=== PATIENT | male | born 1995 | race Caucasian/White ===

== ENCOUNTER 2020-07-09 17:38 | Emergency (ER) | payer OTHER ==
[~2020-07-09] VITALS: Wt 77.1 kg
== END 2020-07-09 21:34 | disposition home or self-care (01) ==
LOC: ED 17:38
DX: S83.105A Unspecified dislocation of left knee, initial encounter (principal); X58.XXXA Exposure to other specified factors, initial encounter; Y93.89 Activity, other specified; Y92.89 Other specified places as the place of occurrence of the external cause; Y99.8 Other external cause status

== ENCOUNTER 2020-07-11 15:00 | Emergency (ER) | payer OTHER ==
[~2020-07-11] VITALS: Ht 172.7 cm; Wt 77.1 kg
== END 2020-07-11 15:30 | disposition home or self-care (01) ==
LOC: ED 15:00
DX: M25.572 Pain in left ankle and joints of left foot (principal)

== ENCOUNTER → 2020-11-09 | Outpatient (CLI) | payer OTHER ==
[~2020-11-09] MED LIST: ZOFRAN4 MG PO
== END | disposition home or self-care (01) ==
LOC: ORTHO 02:55
PROVIDERS: ATTEND Orthopaedic Surgery
DX: M25.562 Pain in left knee (principal)

== ENCOUNTER 2021-01-03 05:05 | Emergency (ER) | payer OTHER ==
[~2021-01-03] VITALS: Ht 180.3 cm; Wt 72.6 kg
[2021-01-03 05:41] LABS: BASO % 0.4 % (0.0-1.0); EOS # 0.1 10*3/uL (0.0-0.4); EOS % 1.4 % (1.0-4.0); HEMATOCRIT 44.6 % (42.0-52.0); LYMPH # 3.2 10*3/uL (1.3-4.4); LYMPH % 30.9 % (27.0-41.0); MEAN CELL VOLUME 89.2 fl (80.0-94.0); MEAN CORPUSCULAR HGB 29.2 pg (27.0-31.0); MEAN CORPUSCULAR HGB CONC 32.7 g/dl (33.0-37.0); MEAN PLATELET VOLUME 10.8 fl (9.6-12.3); MONO % 9.5 % (3.0-9.0); NEUT # 5.9 10*3/uL (2.3-7.9); NEUT % 57.4 % (47.0-73.0); PLATELET COUNT AUTOMATED 303 10*3/uL (130-400); WHITE BLOOD COUNT 10.3 10*3/uL (4.8-10.8)
[2021-01-03 05:51] LABS: ALBUMIN 3.9 gm/dl (3.1-4.5); ALKALINE PHOSPHATASE 105 U/L (45-117); BUN 8 mg/dl (7-24); CHLORIDE 110 mmol/L (98-107); CREATININE 0.78 mg/dL (0.70-1.30); LIPASE 110 U/L (73-393); POTASSIUM 3.4 mmol/L (3.5-5.1); SGOT/AST 8 IU/L (3-35); SGPT/ALT 22 U/L (12-78); SODIUM 141 mmol/L (136-145); TOTAL PROTEIN 7.6 gm/dL (6.4-8.2)
[2021-01-03] MEDS ORDERED: ZOFRAN4 MG PO (06:40)
== END 2021-01-03 07:03 | disposition home or self-care (01) ==
LOC: ED 05:05
PROVIDERS: Internal Medicine
DX: K52.9 Noninfective gastroenteritis and colitis, unspecified (principal); R11.2 Nausea with vomiting, unspecified

== ENCOUNTER → 2022-02-14 | Outpatient (CLI) | payer OTHER | END | disposition home or self-care (01) | LOC: MRI 08:04 | PROVIDERS: ATTEND Orthopaedic Surgery | DX: S83.522A Sprain of posterior cruciate ligament of left knee, initial encounter (principal); S83.207A Unspecified tear of unspecified meniscus, current injury, left knee, initial encounter; X58.XXXA Exposure to other specified factors, initial encounter; Y93.89 Activity, other specified; Y92.89 Other specified places as the place of occurrence of the external cause; Y99.8 Other external cause status ==

== ENCOUNTER 2023-05-07 16:23 | Emergency (ER) | payer OTHER ==
[~2023-05-07] VITALS: Ht 177.8 cm; Wt 83.9 kg
== END 2023-05-07 22:56 | disposition home or self-care (01) ==
LOC: ED 16:23
DX: S83.001A Unspecified subluxation of right patella, initial encounter (principal); Z79.899 Other long term (current) drug therapy; X50.3XXA Overexertion from repetitive movements, initial encounter; Y93.A1 Activity, exercise machines primarily for cardiorespiratory conditioning; Y92.89 Other specified places as the place of occurrence of the external cause; Y99.8 Other external cause status